=== PATIENT | female | born 1995 | race African-American/Black ===

== ENCOUNTER 2021-07-13 21:42 | Emergency (ER) | payer MEDICAID ==
[~2021-07-13] VITALS: Ht 157.5 cm; Wt 76.2 kg
[2021-07-13 23:19] VITALS: BP 143/88
== END 2021-07-14 00:06 | disposition home or self-care (01) ==
LOC: ER 21:42
DX: R10.9 Unspecified abdominal pain (principal); O26.892 Other specified pregnancy related conditions, second trimester; Z3A.15 15 weeks gestation of pregnancy
CPT/HCPCS: 76805; 81002

== ENCOUNTER 2022-06-27 00:28 | Emergency (ER) | payer MEDICAID ==
[~2022-06-27] VITALS: Ht 157.5 cm; Wt 81.8 kg
[2022-06-27] MEDS ORDERED: MIRTAZAPINE 30 MG TAB PO ONE (04:00)
[2022-06-27 04:35] VITALS: BP 112/68
== END 2022-06-27 05:31 | disposition home or self-care (01) ==
LOC: ER 00:28
DX: F32.9 Major depressive disorder, single episode, unspecified (principal); Z76.0 Encounter for issue of repeat prescription